=== PATIENT | female | born 1945 | race African-American/Black ===

== ENCOUNTER 2017-02-02 19:37 | Emergency (ER) | payer BC, MEDICARE ==
[~2017-02-02] VITALS: Ht 172.7 cm; Wt 57.6 kg
[2017-02-02] MEDS ORDERED: HYDRALAZINE HCL50 MG ORAL (20:00)
[2017-02-02] MEDS ORDERED: traMADol 50mg tab ORAL ONE (20:30)
--- NOTE | 2017-02-02 20:51 | Emergency Room Report ---
History of Present Illness General Chief Complaint: Multiple Trauma/Fall Source: Patient (DANIA BURGESS) Present Illness HPI The patient is a 71-year-old female presenting for left-sided pain after falling 3 days prior. The patient states that she tripped and fell onto the left side. She denies hitting head or loss of consciousness. She admits to difficulty walking since the fall. Pain is described as a 7/10 dull ache to the left hip and does not radiate. Pain worse with walking. She denies any previous injury to the area and has been able to ambulate without any difficulty prior to this. She denies any numbness or tingling. She denies other symptoms including headache, dizziness, blurred vision, nausea , vomiting, fever, chills, rash, shortness of breath, chest pain (DANIA BURGESS) Allergies: Uncoded Allergies: PENICILLIN (Allergy, Unknown, 02/02/17) Patient History Past Medical History: see triage record Pertinent Family History: none Last Menstrual Period: Menopause Now: No Reviewed Nursing Documentation: PMH: Agreed, PSxH: Agreed (DANIA BURGESS) Nursing Documentation-PMH Past Medical History: No History, Except For Hx Hypertension: Yes (DANIA BURGESS) Review of Systems All Other Systems: negative except mentioned in HPI (DANIA BURGESS) Physical Exam Vital Signs Date Time Temp Pulse Resp B/P Pulse Ox O2 Delivery O2 Flow Rate FiO2 02/02/17 19:52 98.2 81 16 162/81 99 Room Air Sp02 EP Interpretation: reviewed, normal General Appearance: no apparent distress, alert, GCS 15, non-toxic Head: normocephalic, atraumatic Eyes: bilateral eye PERRL, bilateral eye normal inspection ENT: hearing grossly normal, normal pharynx, no angioedema, normal voice Neck: full range of motion, supple/symm/no masses Respiratory: chest non-tender, lungs clear, normal breath sounds, speaking full sentences Gastrointestinal: normal bowel sounds, non tender, soft, non-distended, no guarding, no rebound Musculoskeletal: pelvis stable, decreased range of motion - L hip, tender - TTp over the L anterior pelvis Neurologic: alert, oriented x3, responsive, motor strength/tone normal, sensory intact, speech normal Psychiatric: judgement/insight normal, memory normal, mood/affect normal, no suicidal/homicidal ideation Skin: normal color, no rash, warm/dry, well hydrated Lymphatic: no adenopathy (DANIA BURGESS.Maciej) Medical Decision Making PA Attestation Dr. Barnes is my supervising physician. Patient management was discussed with my supervising physician (DANIA BURGESS) Diagnostic Impression: Primary Impression: Acetabular fracture Qualified Codes: S32.435A - Nondisplaced fracture of anterior column [ iliopubic] of left acetabulum, initial encounter for closed fracture ER Course The patient is a 71-year-old female presenting for left-sided pain after falling Ddx considered include but not limited to sprain/strain, fracture, contusion Physical exam: Vitals within normal limits. No apparent distress Head NC/AT Neck soft and supple. Non tender. Lungs CTA bilat There is mild tenderness to palpation over the left anterior lower ribs. No ecchymosis or edema. Left hip: Limited active range of motion in all directions. Tenderness to palpation over the anterior pelvis. Pelvis is stable Rib x-rays unremarkable CT of the pelvis shows a nondisplaced subtle fracture of the left acetabulum. Patient is given pain medications and is feeling better Dr. Barnes and I informed the patient and her daughter of these results and recommended that she be admitted to the hospital. The patient insists on going home where she has family members to look after her. The patient is given a walker and is able to ambulate around the emergency department without any difficulty. She'll be discharged home with pain medications and needs to followup with PMD as well as orthopedics. ER precautions given (DANIA BURGESS P.A.) ER Course I examined this patient and agree with treatment plan. Scribe documentation reviewed by me and is accurate. (Wilbur Branes M.D.) Chest X-Ray Diagnostic Results Chest X-Ray Ordered: No (DANIA BURGESS.Maciej) Other X-Ray Diagnostic Results X-Ray ordered: L rib # of Views/Limited Vs Complete: 4 View Interpretation: no fractures, no dislocation, no soft tissue swelling Indication: Pain Impression: No acute disease Date Electronically Signed: Feb 02, 2017 Time Electronically Signed: 22:15 Electronically Signed by: Dr. Molly SMITH Scribe Text I am acting as scribe for my supervising physician. My supervising physician's interpretation of the L rib xrays are there are no fractures, dislocations or soft tissue swelling. (DANIA BURGESS P.A.) CT/MRI/US Diagnostic Results CT/MRI/US Diagnostic Results : Imaging Test Ordered: pelvis Impression Nondisplaced fracture of L acetabulum (DANIA BURGESS P.A.) Last Vital Signs Date Time Temp Pulse Resp B/P Pulse Ox O2 Delivery O2 Flow Rate FiO2 02/02/17 19:52 98.2 81 16 162/81 99 Room Air Status: improved (DANIA BURGESS P.A.) Disposition: HOME, SELF-CARE Condition: Improved Scripts Tramadol Hcl* (ULTRAM*) 50 Mg Tablet 50 MG ORAL Q6H Y for For Pain, #15 TAB 0 Refills Prov: TERZIAN,DANIA P.A. 02/02/17 Ibuprofen* (MOTRIN*) 600 Mg Tablet 600 MG ORAL Q8H Y for For Pain, #30 TAB 0 Refills Prov: TERZIAN,DANIA P.A. 02/02/17 DANIA BURGESS P.A. Feb 02, 2017 20:51 Wilbur Barnes M.D. Feb 03, 2017 15:38
[2017-02-02 21:34] VITALS: BP 113/83
[2017-02-02] MEDS ORDERED: IBUPROFEN600 MG ORAL (21:47)
[2017-02-02] MEDS ORDERED: TRAMADOL HCL50 MG ORAL (21:47)
[2017-02-02 21:56] VITALS: BP 113/83
--- NOTE | 2017-02-03 09:02 | Diagnostic Imaging Report ---
Indication: Pelvic pain and trauma Technique: Continuous helical transaxial imaging of the pelvis was obtained from the iliac crest to the pubic symphysis. Coronal 2-D reformats were also obtained. Study obtained in a Siemens sensation [address] Intravenous non-ionic contrast was administered. Total Dose length Product (DLP): [address] Dose Index Volume (CTDIvol): 10 mGy Comparison: None Findings: There is a nondisplaced fracture that is acute involving the left hemisacrum. There is a slight buckle deformity of the anterior: The left acetabulum consistent with an acute fracture. Is bones are osteopenic. Degenerative changes of both sacroiliac joints and both hips noted. There is narrowing of intervertebral discs and accompanying endplate osteophyte formation. Hypertrophied facet joints also demonstrated. Arterial vascular consultations are present. Diverticulosis of the colon demonstrated. The uterus is absent. Impression: Acute fractures of the left anterior column of acetabulum and left hemisacrum. The fractures are nondisplaced. Osteopenia Degenerative osteoarthritis of both hips, sacroiliac joints and degenerative changes of the lower lumbar spine. Atherosclerotic vascular disease Status post hysterectomy Diverticulosis of the colon. [facility] has communicated the preliminary results to the Emergency Department. Their findings are largely concordant with this report. The CT scanner at [facility] is accredited by the [employer] and the scans are performed using dose optimization techniques as appropriate to a performed exam including Automatic Exposure control.
--- NOTE | 2017-02-03 09:12 | Diagnostic Imaging Report ---
Indication: Pain Comparison: None Findings: Left rib series performed with 4 views. There is no pneumothorax or evidence of a lung contusion or pleural effusion. No definite fracture seen. Aorta is ectatic. Impression: Negative rib series. Atherosclerotic vascular disease
== END 2017-02-02 21:57 | disposition home or self-care (01) ==
LOC: EMR 21:00
DX: S32.402A Unspecified fracture of left acetabulum, initial encounter for closed fracture (principal); W01.0XXA Fall on same level from slipping, tripping and stumbling without subsequent striking against object, initial encounter; Y93.9 Activity, unspecified; Y99.9 Unspecified external cause status; R26.2 Difficulty in walking, not elsewhere classified; Z88.0 Allergy status to penicillin; I10 Essential (primary) hypertension; Z78.0 Asymptomatic menopausal state
CPT/HCPCS: 72192; 99284

== ENCOUNTER 2017-06-16 19:07 | Emergency (ER) | payer BC ==
[~2017-06-16] VITALS: Ht 177.8 cm; Wt 63.5 kg
[~2017-06-16 19:07] MED LIST: HYDRALAZINE HCL50 MG ORAL; IBUPROFEN600 MG ORAL; TRAMADOL HCL50 MG ORAL
[2017-06-16] MEDS ORDERED: Tylenol #3 tab (300mg/30mg) ORAL ONE (19:45)
[2017-06-16] MEDS ORDERED: IBUPROFEN600 MG ORAL (21:14)
[2017-06-16 21:21] VITALS: BP 139/81
--- NOTE | 2017-06-16 22:00 | Emergency Room Report ---
History of Present Illness General Chief Complaint: Lower Extremity Injury Source: Patient Present Illness HPI The patient is a 72-year-old female presenting for left leg pain which occurred after falling today. She states that she was walking on the sidewalk, tripped, and fell. She denies hitting head or loss of consciousness. Pain is a 9/10 dull ache to the left knee and is worse with movement and touch. Pain to the left hip is a 5/10 dull ache and worse with movement. She admits to a past left hip fracture. She denies any numbness or tingling. She denies any other symptoms including N , V, F, chills Allergies: Uncoded Allergies: PENICILLIN (Allergy, Unknown, 02/02/17) Patient History Past Medical History: see triage record Pertinent Family History: none Reviewed Nursing Documentation: PMH: Agreed, PSxH: Agreed Nursing Documentation-PMH Past Medical History: No History, Except For Hx Hypertension: Yes Review of Systems All Other Systems: negative except mentioned in HPI Physical Exam Vital Signs Date Time Temp Pulse Resp B/P (MAP) Pulse Ox O2 Delivery O2 Flow Rate FiO2 06/16/17 19:01 98.4 89 20 147/84 98 Room Air Sp02 EP Interpretation: reviewed, normal General Appearance: no apparent distress, alert, GCS 15, non-toxic Head: normocephalic, atraumatic Eyes: bilateral eye normal inspection, bilateral eye PERRL ENT: hearing grossly normal, normal pharynx, no angioedema, normal voice Neck: full range of motion, supple/symm/no masses Musculoskeletal: pelvis stable, decreased range of motion - L knee, tender - L anterior knee, L lateral hip Neurologic: alert, oriented x3, responsive, motor strength/tone normal, sensory intact, speech normal Psychiatric: judgement/insight normal, memory normal, mood/affect normal, no suicidal/homicidal ideation Skin: normal color, no rash, warm/dry, well hydrated Lymphatic: no adenopathy Procedures Splinting Splinting : Consent: Verbal Location: L knee Pre-Made Type: velcro Splint: knee immob Pre-Proc Neuro Vasc Exam: normal Post-Proc Neuro Vasc Exam: normal Patient Tolerated: Well Complications: None Medical Decision Making PA Attestation Dr. Villegas is my supervising physician. Patient management was discussed with my supervising physician Diagnostic Impression: Primary Impression: Left patella fracture Qualified Codes: S82.002A - Unspecified fracture of left patella, initial encounter for closed fracture ER Course The patient is a 72-year-old female presenting for left leg pain which occurred after falling today. Ddx considered include but not limited to sprain/strain, fracture, contusion Physical exam: NAD TTP over the L anterior knee with edema and limited AROM. TTP over the L lateral pelvis. Full AROM. CT scan of pelvis is unremarkable. No acute findings. X-ray of the left knee reveals soft tissue swelling and a patella fracture. Knee immobilizer is placed and the patient will followup with her primary doctor. The patient's daughter will pick her up today. Other X-Ray Diagnostic Results Other X-Ray Diagnostic Results : X-Ray ordered: L knee # of Views/Limited Vs Complete: 3 View Indication: Pain EP Interpretation: Yes Interpretation: other - + STS and patellar fracture Impression: Other - patella fracture Electronically Signed by: BRIANA Garg Scribe Text I have reviewed the xray with my supervising physician and interpretation is that there is a patella fracture with STS. CT/MRI/US Diagnostic Results CT/MRI/US Diagnostic Results : Imaging Test Ordered: CT pelvis Impression unremarkable Last Vital Signs Date Time Temp Pulse Resp B/P (MAP) Pulse Ox O2 Delivery O2 Flow Rate FiO2 06/16/17 19:01 98.4 89 20 147/84 98 Room Air Status: improved Disposition: HOME, SELF-CARE Condition: Improved Scripts Ibuprofen* (MOTRIN*) 600 Mg Tablet 600 MG ORAL Q8H Y for For Pain, #30 TAB 0 Refills Prov: DANIA BURGESS 06/16/17 Patient Instructions: Patellar Fracture, Adult Additional Instructions: I discussed my findings with the patient. All questions and concerns have been answered. Treatment and medication compliance have been addressed. Return to ED if pain remains or worsens, numbness or tingling occurs, new rash is noticed , fever is noticed, or if needed for any reason. Patient verbalized understanding of discharge instructions. Please followup with your primary doctor and orthopedics as soon as possible DANIA BURGESS Jun 16, 2017 22:00
--- NOTE | 2017-06-17 10:25 | Diagnostic Imaging Report ---
Indication: Pelvic pain Technique: Continuous helical transaxial imaging of the pelvis was obtained from the iliac crest to the pubic symphysis. Coronal 2-D reformats were also obtained. Study obtained in a Siemens sensation [address] Intravenous non-ionic contrast was administered. Total Dose length Product (DLP): [address] Dose Index Volume (CTDIvol): 0.25, 9.49 mGy Comparison: None Findings: There is sclerosis about the sacrum close to sacroiliac joints bilaterally. Findings suspicious for sacral insufficiency fractures. Correlation with MR suggested to assess for acuity. There are signs of old pelvic trauma as well with a healed left anterior acetabular fracture extending into the superior pubic ramus as well as comminuted fractures of the left inferior pubic ramus. Moderate hypertrophic osteoarthritis of both hips and sacroiliac joints demonstrated. Moderate degenerative changes of the lower lumbar spine noted with vacuum disc phenomena and hypertrophy facets. There is an anterolisthesis of L4 on 5 noted. Moderate arterial vascular calcification within the aorta demonstrated. Extensive diverticulosis of the colon noted. Uterus is absent and not visualized. Impression: Acuity indeterminate bilateral sacral insufficiency fractures suspected. Correlation with MR or bone scan may be of benefit to assess for acuity. Old fractures of the left pubis/acetabulum as described above. Osteoarthritis as described above. Spondylosis. Status post hysterectomy Atherosclerotic vascular disease Colonic diverticulosis The CT scanner at [facility] is accredited by the [employer] and the scans are performed using dose optimization techniques as appropriate to a performed exam including Automatic Exposure control.
--- NOTE | 2017-06-17 11:57 | Diagnostic Imaging Report ---
Indication: Pain 3 views of the left knee were obtained. Findings: No fracture seen. There is a moderate amount of soft tissue swelling in the anterior part of the knee especially above the patella. There is a joint effusion. The bones are osteopenic. Impression: No acute fracture identified. Moderate soft tissue swelling and joint effusion
== END 2017-06-16 21:21 | disposition home or self-care (01) ==
LOC: EDBD 19:07 → EMR 19:40
DX: S82.002A Unspecified fracture of left patella, initial encounter for closed fracture (principal); W01.0XXA Fall on same level from slipping, tripping and stumbling without subsequent striking against object, initial encounter; Y92.480 Sidewalk as the place of occurrence of the external cause; Y93.01 Activity, walking, marching and hiking; Z88.0 Allergy status to penicillin; I10 Essential (primary) hypertension
CPT/HCPCS: 29530; 72192; 99284